=== PATIENT | male | born 1975 | race Caucasian/White ===

== ENCOUNTER → 2020-07-18 | Outpatient (CLI) | payer MEDICARE, OTHER ==
[~2020-07-18] MED LIST: MEDROL4 MG PO; NORCO 5-325 TA1 EACH PO; NORFLEX 100 MG100 MG PO; PHENERGAN 12.12.5 M1 PO; Voltaren Gel 1% TOP
[2020-07-18 17:37] LABS: RED BLOOD COUNT 3.89 M/UL (4.20-5.50); WHITE BLOOD COUNT 8.9 K/UL (4.5-11.0)
== END ==
LOC: LAB 16:36
PROVIDERS: Internal Medicine
DX: I12.9 Hypertensive chronic kidney disease with stage 1 through stage 4 chronic kidney disease, or unspecified chronic kidney disease (principal); N18.4 Chronic kidney disease, stage 4 (severe); E55.9 Vitamin D deficiency, unspecified
CPT/HCPCS: 36415; 80069; 82570; 84156; 84550; 85027

== ENCOUNTER → 2020-11-14 | Outpatient (CLI) | payer MEDICARE, OTHER | LOC: LAB 12:10 | PROVIDERS: Internal Medicine | DX: Q61.2 Polycystic kidney, adult type (principal) | CPT/HCPCS: 36415; 80069; 82570; 83970; 84156 ==

== ENCOUNTER → 2021-02-20 | Outpatient (CLI) | payer MEDICARE, OTHER ==
[2021-02-20 08:37] LABS: HEMOGLOBIN 8.6 gm/dl (14.0-17.5); RED BLOOD COUNT 3.33 M/UL (4.20-5.50)
== END ==
LOC: LAB 08:12
PROVIDERS: Internal Medicine
DX: I12.9 Hypertensive chronic kidney disease with stage 1 through stage 4 chronic kidney disease, or unspecified chronic kidney disease (principal); N18.4 Chronic kidney disease, stage 4 (severe)
CPT/HCPCS: 36415; 80069; 82330; 82570; 83970; 84156; 85027

== ENCOUNTER → 2021-04-30 | Outpatient (CLI) | payer MEDICARE, OTHER ==
[2021-04-30 09:05] LABS: HEMOGLOBIN 8.5 gm/dl (14.0-17.5); RED BLOOD COUNT 3.26 M/UL (4.20-5.50); WHITE BLOOD COUNT 6.7 K/UL (4.5-11.0)
== END ==
LOC: LAB 08:23
PROVIDERS: Internal Medicine
DX: E55.9 Vitamin D deficiency, unspecified (principal); N18.5 Chronic kidney disease, stage 5
CPT/HCPCS: 36415; 80069; 83970; 85027

== ENCOUNTER 2021-08-06 05:21 | Observation (INO) | payer MEDICARE, OTHER ==
[~2021-08-06] VITALS: Ht 193 cm; Wt 122.5 kg
[2021-08-06 05:53] LABS: HEMOGLOBIN 7.9 gm/dl (14.0-17.5); RED BLOOD COUNT 3.1 M/UL (4.20-5.50); WHITE BLOOD COUNT 11.3 K/UL (4.5-11.0)
[2021-08-06] MEDS ORDERED: CLINDAMYCIN HC300 MG PO (11:37)
== END 2021-08-06 11:43 | disposition left against medical advice (07) ==
LOC: ER1 05:21 → CDU 09:06
PROVIDERS: Physician Assistant; ADMIT Internal Medicine
DX: L02.31 Cutaneous abscess of buttock (principal); L03.317 Cellulitis of buttock; I12.9 Hypertensive chronic kidney disease with stage 1 through stage 4 chronic kidney disease, or unspecified chronic kidney disease; N18.9 Chronic kidney disease, unspecified; N17.9 Acute kidney failure, unspecified; N28.1 Cyst of kidney, acquired; F17.200 Nicotine dependence, unspecified, uncomplicated; D64.9 Anemia, unspecified; Z20.822 Contact with and (suspected) exposure to COVID-19
CPT/HCPCS: 72192; 80053; 83605; 85025; 85652; 86140; 87040; 96365; 96375; 96376; 99284; G0378; J2270; J2405; J3370; U0002

== ENCOUNTER → 2021-08-19 | Outpatient (CLI) | payer MEDICARE, OTHER ==
[~2021-08-19] MED LIST changes: +ABILIFY 2 MG TAB2 MG PO; +BUPRENORPHIN-N1 EACH SL; +CLINDAMYCIN HC300 MG PO; +NORVASC5 MG PO; +PROTONIX 40 MG40 M1 PO; +SODIUM BICARBO650 M1 PO; +VASOTEC 5 MG TAB5 MG PO; +VIIBRYD20 MG PO
[2021-08-19 13:13] LABS: HEMOGLOBIN 8.1 gm/dl (14.0-17.5); RED BLOOD COUNT 3.3 M/UL (4.20-5.50); WHITE BLOOD COUNT 8.2 K/UL (4.5-11.0)
== END ==
LOC: OPSV2 11:00
PROVIDERS: Anesthesiology
DX: Z01.818 Encounter for other preprocedural examination (principal); R06.02 Shortness of breath; F17.200 Nicotine dependence, unspecified, uncomplicated; D64.9 Anemia, unspecified; N28.9 Disorder of kidney and ureter, unspecified
CPT/HCPCS: 36415; 71046; 80048; 85025; 93005